=== PATIENT | female | born 2000 | race Caucasian/White ===

== ENCOUNTER → 2018-08-01 | Outpatient (REF) | payer BC ==
[2018-08-01 13:41] LABS: HEMATOCRIT 38.1 % (36.0-47.0); HEMOGLOBIN 12.9 g/dl (12.0-15.5); MEAN CORPUSCULAR HEMOGLOBIN 30.2 pg (27.0-33.0); MEAN CORPUSCULAR HGB CONC 33.9 g/dl (32.0-36.5); MEAN CORPUSCULAR VOLUME 89.2 fl (80.0-96.0); PLATELET COUNT, AUTOMATED 276 10^3/uL (150-450); RED BLOOD COUNT 4.27 10^6/uL (4.00-5.40); WHITE BLOOD COUNT 8.2 10^3/uL (4.0-10.0)
[2018-08-01 14:48] LABS: HCG, SERUM QUANTITATIVE 65350 MIU/ML
[2018-08-02 10:13] LABS: RUBELLA IgG QUALITATIVE IMMUNE (IMMUNE)
[2018-08-02 10:41] LABS: HEPATITIS C VIRUS ABY INDEX < 0.0 INDEX (<0.8); HIV 1&2 SCREEN CENTAUR NEGATIVE (NEGATIVE)
== END ==
LOC: M LAB REF 12:39
PROVIDERS: ATTEND Nurse Practitioner Women's Health
DX: Z32.01 Encounter for pregnancy test, result positive (principal)

== ENCOUNTER → 2018-11-30 | Outpatient (REF) | payer BC ==
[~2018-11-30] MED LIST: IBUP80TA PO; MULTTAB20 PO; PRENTAB9 PO
== END ==
LOC: M LAB REF 12:32
PROVIDERS: ATTEND Nurse Practitioner Women's Health
DX: Z34.02 Encounter for supervision of normal first pregnancy, second trimester (principal)

== ENCOUNTER → 2019-01-05 | Outpatient (CLI) | payer BC ==
--- NOTE | 2019-01-05 16:06 | REP ---
Right lower extremity Duplex Doppler venous ultrasound: Real time compression and duplex Doppler interrogation of the right lower extremity deep venous system is performed. The right common femoral, superficial femoral and popliteal veins are fully compressible with transducer pressure and demonstrate normal spontaneous and phasic flow, without evidence of deep venous thrombosis. Impression: No evidence of deep venous thrombosis of the right lower extremity femoral popliteal venous system. Electronically Signed by Jamarcus Orr MD 01/05/2019 03:56 P
== END ==
LOC: M RAD 14:53
PROVIDERS: ATTEND Physician Assistant
DX: R22.41 Localized swelling, mass and lump, right lower limb (principal)

== ENCOUNTER → 2019-02-02 | Outpatient (REF) | payer BC ==
[2019-02-02 14:00] LABS: ALBUMIN 2.9 GM/DL (3.2-5.2); ALT/SGPT 12 U/L (12-78); BILIRUBIN,DIRECT < 0.1 MG/DL (0.0-0.2); BILIRUBIN,TOTAL 0.2 MG/DL (0.2-1.0); TOTAL PROTEIN 6.2 GM/DL (6.4-8.2)
== END ==
LOC: M LAB REF 13:06
PROVIDERS: ATTEND Obstetrics & Gynecology
DX: R21 Rash and other nonspecific skin eruption (principal)

== ENCOUNTER → 2019-02-09 | Outpatient (REF) | payer MEDICAID | LOC: M LAB REF 12:27 | PROVIDERS: ATTEND Nurse Practitioner Women's Health | DX: Z36.85 Encounter for antenatal screening for Streptococcus B (principal); Z3A.00 Weeks of gestation of pregnancy not specified ==

== ENCOUNTER 2019-03-14 08:52 | Inpatient (IN) | payer MEDICAID ==
[~2019-03-14] VITALS: Ht 170.2 cm; Wt 91.9 kg
[2019-03-14] VITALS (35 sets, daily range): BP systolic 110–162; BP diastolic 67–103
[2019-03-14] MEDS ORDERED: LR 1,000 ML IV SCH (09:02)
[2019-03-14] MEDS ORDERED: LACTATED RINGER'S 1000 ML IV STA (09:02)
[2019-03-14] MEDS ORDERED: miSOPROStol 50 MCG 1/2 TAB (S0191) PO ONE (09:15)
[2019-03-14] MEDS ORDERED: PRENTAB9 PO (09:38)
[2019-03-14 10:30] LABS: HEMATOCRIT 35.4 % (36.0-47.0); HEMOGLOBIN 12.3 g/dl (12.0-15.5); MEAN CORPUSCULAR HEMOGLOBIN 31.5 pg (27.0-33.0); MEAN CORPUSCULAR HGB CONC 34.7 g/dl (32.0-36.5); MEAN CORPUSCULAR VOLUME 90.5 fl (80.0-96.0); PLATELET COUNT, AUTOMATED 203 10^3/uL (150-450); RED BLOOD COUNT 3.91 10^6/uL (4.00-5.40); WHITE BLOOD COUNT 13.6 10^3/uL (4.0-10.0)
[2019-03-14] MEDS ORDERED: OXYTOCIN DRIP 30 UNITS in IV 1 EA IV SCH ×2 (13:15→20:29)
[2019-03-14] MEDS ORDERED: FENTANYL 2MCG/ML ROPIVACAINE 0.2% IN 0.9% NACL 100ML IVBAG As Ordered ONE (13:22)
[2019-03-14] MEDS ORDERED: fentaNYL 100 MCG/2 ML INJECTION (J3010) As Ordered ONE (13:22)
[2019-03-14] MEDS ORDERED: OXYTOCIN 30 UNITS IN 0.9% NaCl 500ML IV BAG (J2590) As Ordered ONE (13:23)
[2019-03-14] MEDS ORDERED: EPIDURAL/PCA KEYS XX PRN (14:30)
[2019-03-14] MEDS ORDERED: NALOXONE INJ 0.4 MG/1 ML VIAL (J2310) IV PRN (14:30)
[2019-03-14] MEDS ORDERED: EPIDURAL COMMENT XX SCH (14:30)
[2019-03-14] MEDS ORDERED: REFRIGERATOR IV KEYS XX PRN (14:30)
[2019-03-14] MEDS ORDERED: ONDANSETRON 4MG/2ML VIAL (J2405) IV PRN (14:30)
[2019-03-14] MEDS ORDERED: diphenhydrAMINE INJ 50MG/ML VIAL (J1200) IV PRN (14:30)
[2019-03-14] MEDS ORDERED: ePHEDrine SULFATE 25 MG/5 ML(5MG/ML) SYRINGE IV PRN (14:30)
[2019-03-14] MEDS ORDERED: FENTANYL/ROPIVACAINE/NACL BAG 100 ML EPIDURAL SCH (14:30)
[2019-03-14 20:13] LABS: CORD GAS ABE A -4.7; CORD GAS HCO3 A 23.3 MEQ/L; CORD GAS O2 SAT A 56.4 %; CORD GAS PH A 7.252 UNITS; CORD GAS PO2 A 26.4 mmHg; CORD GAS SBC A 19.6 MEQ/L; CORD GAS TCO2 A 24.9 MEQ/L
[2019-03-14 20:16] LABS: CORD GAS ABE V -4.2; CORD GAS HCO3 V 22.1 MEQ/L; CORD GAS O2 SAT V 70.9 %; CORD GAS PCO2 V 44.5 mmHg; CORD GAS PH V 7.313 UNITS; CORD GAS SBC V 20.4 MEQ/L; CORD GAS TCO2 V 23.4 MEQ/L
[2019-03-14] MEDS ORDERED: ACETAMINOPHEN 500 MG TAB PO PRN (20:30)
[2019-03-14] MEDS ORDERED: MEASLES,MUMPS,RUBELLA VACCINE INJ (MMR-II) (90707) SC SCH (20:30)
[2019-03-14] MEDS ORDERED: ACETAMINOPHEN TAB 650MG DOSE (2X325MG) PO PRN (20:30)
[2019-03-14] MEDS ORDERED: DOCUSATE SODIUM 100 MG CAP PO PRN (20:30)
[2019-03-14] MEDS ORDERED: DIBUCAINE 1% OINTMENT 30GM TOP PRN (20:30)
[2019-03-14] MEDS ORDERED: IBUPROFEN 600 MG TAB PO PRN (20:30)
[2019-03-14] MEDS ORDERED: RHOGAM 300 MCG (1500 IU) INJ (J2790) IM SCH (20:30)
[2019-03-14] MEDS ORDERED: METHYLERGONOVINE MALEATE 0.2 MG TAB PO PRN (20:30)
[2019-03-14] MEDS ORDERED: METHYLERGONOVINE MALEATE 0.2 MG/ML VIAL (J2210) As Ordered ONE (21:40)
[2019-03-14] MEDS: IBUPROFEN 800 MG TAB PO PRN (23:03)
[2019-03-15 06:24] VITALS: BP 111/67
[2019-03-15 06:27] LABS: HEMATOCRIT 33.5 % (36.0-47.0); HEMOGLOBIN 11.5 g/dl (12.0-15.5); MEAN CORPUSCULAR HEMOGLOBIN 31.4 pg (27.0-33.0); MEAN CORPUSCULAR HGB CONC 34.3 g/dl (32.0-36.5); MEAN CORPUSCULAR VOLUME 91.5 fl (80.0-96.0); PLATELET COUNT, AUTOMATED 187 10^3/uL (150-450); RED BLOOD COUNT 3.66 10^6/uL (4.00-5.40); WHITE BLOOD COUNT 15.1 10^3/uL (4.0-10.0)
--- NOTE | 2019-03-15 08:05 | HPE ---
DATE OF ADMISSION: 03/14/2019 HISTORY: Oscar is a 18-year-old female, 1, para 0-0-0-1 with an expected date of confinement (EDC) of 03/10/2019, estimated gestational age (EGA) 40+ weeks gestation who is being admitted for an induction. On admission, no bleeding, no rupture of membranes, occasional contraction. She was seen and evaluated in the office yesterday and was found to be 1-2 cm dilated. Her record reviewed which was essentially unremarkable. LABS: Blood type is O+. Rubella immune. Hepatitis negative. HIV negative. GC and chlamydia negative. 1-hour sugar testing was within normal limits. Her GBS is negative. PAST MEDICAL HISTORY: Significant for anxiety. PAST SURGICAL HISTORY: Denies. SOCIAL HISTORY: Denies any alcohol, drug use or cigarette smoking. REVIEW OF SYSTEMS: Unremarkable. MEDICATIONS: vitamin. ALLERGIES: No known drug allergies. PHYSICAL EXAMINATION: HEENT: Grossly within normal limits. Abdomen: Soft, nontender, nondistended. Extremities: No clubbing, cyanosis or edema. Vaginal Exam: 1-2 cm, 60% effaced, fetus at -3 station, vertex position. Tracing reviewed, category one tracing. ASSESSMENT: Intrauterine at 40-4/7 weeks gestation being admitted for induction. PLAN: Admit to labor and delivery. Routine labs sent. Induction process discussed with the patient. Decision made to proceed with Cytotec induction with possible artificial rupture of membranes and Pitocin induction. Pain management also discussed. The patient opts for an epidural. Will continue to monitor. Anticipate delivery.
--- NOTE | 2019-03-15 08:19 | DN ---
DATE OF DELIVERY: 03/14/2019 Valerie is a 18-year-old female 1, para 0 who was admitted at 40-4/7 weeks gestation for induction. She underwent Cytotec times one dose followed by artificial rupture of membrane and Pitocin augmentation. She then progressed to fully dilated after an epidural anesthetic for pain control. She delivered a live female in right occiput anterior position over an intact perineum with a left vaginal wall laceration. 9 and 9. weight 7 pounds 10 ounces. Placenta delivered spontaneously intact. Three-vessel cord. Perineum, vagina and cervix inspected. No other laceration noted. The laceration was repaired using the #2-0 Chromic in a running fashion. 0.25 mg of Methergine was given IM to help with extra bleeding. Estimated blood loss 400 mL. Both mother and baby in stable condition.
[2019-03-15] MEDS: PRENATAL VITAMINS CHEWABLE TABLET PO SCH (09:32)
[2019-03-15] MEDS: IBUPROFEN 800 MG TAB PO PRN (12:15)
[2019-03-15 18:00] VITALS: BP 113/70
[2019-03-16 06:01] VITALS: BP 109/66
[2019-03-16] MEDS ORDERED: IBUP80TA PO (08:56)
[2019-03-16] MEDS: PRENATAL VITAMINS CHEWABLE TABLET PO SCH (09:54)
== END 2019-03-16 13:15 | disposition home or self-care (01) | DRG 560 ==
LOC: M LDI 08:52 → M OBS 22:30
PROVIDERS: ADMIT Obstetrics & Gynecology; ATTEND Obstetrics & Gynecology
PROC: 10E0XZZ Delivery of Products of Conception, External Approach (ICD-10-PCS; principal; 2019-03-14)
PROC: 0HQ9XZZ Repair Perineum Skin, External Approach (ICD-10-PCS; 2019-03-14)
PROC: 10907ZC Drainage of Amniotic Fluid, Therapeutic from Products of Conception, Via Natural or Artificial Opening (ICD-10-PCS; 2019-03-14)
PROC: 3E0DXGC Introduction of Other Therapeutic Substance into Mouth and Pharynx, External Approach (ICD-10-PCS; 2019-03-14)
DX: O48.0 Post-term pregnancy (principal); O70.0 First degree perineal laceration during delivery; Z37.0 Single live birth; Z3A.40 40 weeks gestation of pregnancy

== ENCOUNTER → 2019-10-04 | Outpatient (CLI) | payer OTHER | LOC: M LABSMTC 10:13 | PROVIDERS: ATTEND Specialist | DX: Z03.818 Encounter for observation for suspected exposure to other biological agents ruled out (principal); Z11.59 Encounter for screening for other viral diseases | CPT/HCPCS: C9803; U0003 ==

== ENCOUNTER → 2020-07-03 | Outpatient (CLI) | payer OTHER | LOC: M LABSMTC 09:39 | DX: Z20.822 Contact with and (suspected) exposure to COVID-19 (principal) ==